=== PATIENT | female | born 1985 | race American Indian/Alaskan Native ===

== ENCOUNTER 2019-01-03 07:30 | Inpatient (IN) | payer MEDICARE ==
[~2019-01-03 07:30] MED LIST: CLEOCIN 600 MG/50 mL 600 MG/50 ML BAG IV NR
[2019-01-03] MEDS ORDERED: LACTATED RINGERS 1,000 ML ONE (12:41)
[2019-01-03] MEDS ORDERED: CLEOCIN 600 MG/50 mL 600 MG/50 ML BAG IV ONE (12:42)
[2019-01-03] MEDS ORDERED: XYLOCAINE MPF 2% ONE (12:44)
[2019-01-03] MEDS ORDERED: QUELICIN ONE (12:44)
[2019-01-03] MEDS ORDERED: DIPRIVAN 10 MG/ML IV ONE (12:44)
[2019-01-03] MEDS: LACTATED RINGERS 1,000 ML IV SCH ×2 (12:45→21:54)
[2019-01-03] MEDS ORDERED: SUBLIMAZE ONE (12:46)
[2019-01-03] MEDS ORDERED: VERSED ONE (12:52)
[2019-01-03] MEDS ORDERED: PEPCID IV ONE (12:52)
[2019-01-03] MEDS ORDERED: TYLENOL ONE (12:52)
[2019-01-03] MEDS ORDERED: NEURONTIN ONE ×2 (12:52)
[2019-01-03] MEDS ORDERED: LACTATED RINGERS 1,000 ML IV SCH (13:00)
[2019-01-03] MEDS ORDERED: XYLOCAINE 1%/ EPI 1:100,000 INFILTRATI ONE ×4 (13:38→14:17)
[2019-01-03] MEDS ORDERED: NACL 0.9% IR ONE (14:12)
--- NOTE | 2019-01-03 14:15 | Anesthesia Day of Surgery ---
Anesthesia Day of Surgery - Day of Surgery Patient Examined: Yes Patient H&P Reviewed: Yes Patient is NPO: Yes Beta Blockers: No Cardiac Clearance: No Pulmonary Clearance: No Kranthi's Test: N/A
--- NOTE | 2019-01-03 14:17 | Anesthesia Consultation ---
Anesthesia Consult and Med Hx Date of service: 01/03/19 - Airway Anesthetic Teeth Evaluation: Good ROM Head & Neck: Adequate Mental/Hyoid Distance: Inadequate (TMD << 3) Mallampati Class: Class IV Intubation Access Assessment: Possibly Difficult (likely will benefit from video laryngoscopy to secure airway) - Pulmonary Exam CTA: Yes - Cardiac Exam Cardiac Exam: RRR - Pre-Operative Health Status ASA Pre-Surgery Classification: ASA3 Proposed Anesthetic Plan: General - Pulmonary Hx Smoking: No Hx Asthma: No Hx Sleep Apnea: No - Cardiovascular System Hx Hypertension: No - Central Nervous System Hx Psychiatric Problems: Yes (Anxiety, depression) - Gastrointestinal Hx Gastroesophageal Reflux Disease: Yes (on nexium) - Endocrine Hx Renal Disease: No Hx End Stage Renal Disease: No - Other Systems Hx Alcohol Use: Yes (SOCIALLY) Hx Substance Use: No Hx Cancer: No Hx Obesity: Yes - Additional Comments Anesthesia Medical History Comments: super morbid obesity - positioning concerns as a prone patient with low FRC
[2019-01-03] MEDS ORDERED: TORADOL IV PRN (14:20)
[2019-01-03] MEDS ORDERED: ZOFRAN IV PRN (14:20)
[2019-01-03] MEDS ORDERED: NARCAN 0.4 MG/1 ML IV PRN ×3 (14:20→18:45)
[2019-01-03] MEDS ORDERED: SUBLIMAZE IV PRN ×3 (14:20→19:00)
[2019-01-03] MEDS ORDERED: ZEMURON IV ONE (15:01)
[2019-01-03] MEDS ORDERED: ZOFRAN ONE (15:01)
--- NOTE | 2019-01-03 15:33 | Operative Report ---
Operative Report Operative Report: Plastic Surgery Operative Note Preoperative Diagnosis: Hidradenitis suppurativa of the perianal region Postoperative Diagnosi: Same Procedure: Excision of gluteal cleft hidradenitis, 20x3cm (90 sq cm)application of VAC dressing Anesthesia: General endotracheal Surgeon: Dr. Lois Silverman Training Associate: SHREYA Sheppard Specimens: None EBL: Minimal Indications: Patient is a 33-year-old -[place] female who has a long- standing history hidradenitis suppurativa of the hair-bearing regions of her body. She has undergone multiple prior procedures to excise the diseased skin with success. Currently she suffers from hidradenitis of the superior gluteal cleft. This has been managed at home with wound care, with no improvement. She will undergo excision, with the plan for future split-thickness skin grafting to close her wound. The benefits as well as the risk of the procedure were dis cussed with the patient including but not limited to: Bleeding, hematoma, infection, wound dehiscence, need for further surgeries. Patient understands and accepts these risks and desired to proceed with procedure. Informed consent was obtained. Procedure: After review of pertinent history and physical exam, the patient was brought to the operating room and placed supine on the OR table. After induction of adequate general endotracheal anesthesia, the patient was placed in the prone position and the buttocks was prepped with Betadine and draped in the usual sterile surgical fashion. To begin, a marking pen was used to outline the desired area of diseased skin for excision. Next, 1% lidocaine with epinephrine was infiltrated in the skin and subcutaneous region surrounding the proposed excision. Using a #10 blade, the hidradenitis was sharply excised, and electrocautery was used to remove the skin full-thickness, exposing subcutaneous fat. Also using electrocautery, hemostasis was achieved. We then began approximation of the caudad portion of the incision with 2-0 Monocryl suture for the subcutaneous and deep dermal layers. This portion of the incision was then sealed with Dermabond. This was followed by placement of VAC dressing as follows: Black foam was cut to size, and covered with adhesive. The dressing was then placed to machine suction, and noted to have no leaks at 125 mmHg continuous suction. Patient was then flipped back to the supine position and awakened from anesthesia. She was then transferred to the recovery room in stable condition. Patient tolerated the procedure well. There were no complications. All sponge needle and instrument counts were correct at the end of the case.
[2019-01-03] MEDS ORDERED: NORCO 7.5/325 PO PRN (15:34)
[2019-01-03] MEDS ORDERED: MORPHINE PCA 30MG/30ML IV SCH (16:30)
[2019-01-03] MEDS ORDERED: NACL 0.9% 1000 ML 1,000 ML IV SCH ×3 (17:00→19:00)
[2019-01-03] MEDS: FENTANYL PCA IV SCH (21:49)
[2019-01-04] MEDS: IBUPROFEN PO PRN (01:20)
[2019-01-04] MEDS: PERCOCET 5/325 PO PRN ×2 (07:41→13:11)
[2019-01-04] MEDS: SENOKOT S PO SCH (09:59)
[2019-01-04] MEDS ORDERED: DILAUDID IV ONE (14:40)
[2019-01-04] MEDS ORDERED: DILAUDID IV STA (14:41)
--- NOTE | 2019-01-04 14:57 | Progress Note ---
Subjective Date of service: 01/04/19 Interval history: Plastic Surgery Progress Note Patient is doing well, POD #1 s/p excision of gluteal cleft hidradenitis with VAC placement. She is having issues with getting adequate pain control, denies nausea or vomiting. She is OOB to the bathroom. No issues with the VAC ove rnight. AFVSS NAD; AAOx3 VAC dressing in place, no leaks, serosanguinous output. Plan: We will switch her meds to IV Dilaudid, which she states she has taken in the past without issue and add IV Toradol for today to get pain under control, switch over to Ibuprofen and Percocet likely late tomorrow or Monday. Consult Wound Care nursing re: Dressing change Monday and Q 72H as well as setting up home VAC services, patient education on how to manage the dressing herself. Home meds ordered. OOB to bathroom, SCD's in bed. Objective - Constitutional Vitals: Vital Signs - 12hr 01/04/19 01/04/19 01/04/19 04:00 07:06 07:41 Temperature 98.4 F Pulse Rate 74 Respiratory 18 20 18 Rate Blood Pressure Blood Pressure 118/73 [Left] O2 Sat by Pulse Oximetry 01/04/19 01/04/19 01/04/19 08:50 12:24 13:11 Temperature 98.1 F 98.5 F Pulse Rate 64 88 Respiratory 16 20 20 Rate Blood Pressure 118/73 Blood Pressure 105/55 [Left] O2 Sat by Pulse 94 98 Oximetry Medications & Allergies - Medications Allergies/Adverse Reactions: Allergies hydrocodone Allergy (Verified 01/01/19 15:21) Rash morphine Allergy (Verified 01/01/19 15:21) Vomiting Penicillins Allergy (Verified 01/01/19 15:21) Rash Sulfa (Sulfonamide Antibiotics) Allergy (Verified 01/01/19 15:21) Rash vancomycin Allergy (Verified 01/01/19 15:21) Rash levofloxacin [From Levaquin] Adverse Reaction (Verified 01/03/19 12:56) Rash Home Medications: Home Medications Medication Instructions Recorded Confirmed Last Taken Type Ascorbic Acid [Vitamin C] 500 mg PO BID 02/16/18 01/03/19 01/02/19 08:00 History Carisoprodol [Soma] 350 mg PO DAILY 02/16/18 01/03/1901/02/19 22:00 History Cyanocobalamin (Vitamin B-12) 1,000 mcg PO DAILY 02/16/18 01/03/19 01/02/19 08:00 History [Vitamin B-12] Esomeprazole Magnesium 40 mg PO DAILY 02/16/18 01/03/19 01/02/19 23:30 History Promethazine [Phenergan] 25 mg PO DAILY 02/16/18 01/03/19 01/03/19 07:00 History buPROPion SR [Wellbutrin Sr] 150 mg PO QAM 02/16/18 01/03/19 01/02/19 22:00 History Amitriptyline [Elavil] 50 mg PO QHS 01/01/19 01/03/19 01/02/19 23:30 History Oxycodone HCl [oxyCODONE] 10 mg PO Q6H PRN 01/01/19 01/03/19 01/02/19 23:30 History PARoxetine HCl [Paroxetine] 30 mg PO DAILY 01/01/19 01/03/19 01/02/19 23:30 History Eligen B12 Tablet 1,000 mg PO DAILY 01/03/19 01/03/19 01/02/19 08:30 History Glucosamine HCl 50 mg PO DAILY 01/03/19 01/03/19 01/02/19 08:00 History Active Medications: Generic Name Dose Route Start Last Admin Trade Name Freq PRN Reason Stop Dose Admin Ascorbic Acid 500 mg 01/04/19 15:00 Vitamin C PO BID [facility] Bupropion HCl 150 mg 01/04/19 15:00 Wellbutrin Sr PO QDAY STEPHANIE Carisoprodol 350 mg 01/04/19 22:00 Soma PO DAILY STEPHANIE Cyanocobalamin 1,000 mcg 01/04/19 15:00 Vitamin B-12 PO QDAY STEPHANIE Diphenhydramine HCl 25 mg 01/03/19 15:34 Benadryl PO Q6H PRN Itching Famotidine 20 mg 01/04/19 15:00 Pepcid PO BID STEPHANIE Fentanyl 50 mcg 01/03/19 19:00 Sublimaze IV Q30MIN PRN Pain , Severe (7-10) Fentanyl 0 mcg 01/03/19 20:00 01/03/19 21:49 Fentanyl Equipment Detailer 300mcg/30ml IV 1 cartstart DIRECT STEPHANIE Administration Protocol Hydromorphone HCl 0.5 mg 01/04/19 14:41 Dilaudid IV Q2H PRN Pain , Severe (7-10) Hydromorphone HCl 2 mg 01/04/19 14:41 Dilaudid IV 01/04/19 14:42 ONCE STA Clindamycin HCl 600 mg in 50 mls @ 100 mls/hr 01/03/19 07:30 Cleocin 600 Mg/50 Ml IV INTRAOP STEPHANIE Protocol Lactated Ringer's 1,000 mls @ 75 mls/hr 01/03/19 13:00 01/03/19 21:54 Lactated Ringers IV 75 mls/hr DIRECT STEPHANIE Administration Sodium Chloride 1,000 mls @ 42 mls/hr 01/03/19 17:00 01/04/19 13:02 Nacl 0.9% 1000 Ml IV 42 mls/hr DIRECT STEPHANIE Administration Sodium Chloride 1,000 mls @ 42 mls/hr 01/03/19 17:00 Nacl 0.9% 1000 Ml IV DIRECT STEPHANIE Sodium Chloride 1,000 mls @ 42 mls/hr 01/03/19 19:00 Nacl 0.9% 1000 Ml IV DIRECT STEPHANIE Lactated Ringer's 1,000 mls @ 150 mls/hr 01/04/19 15:00 Lactated Ringers IV DIRECT STEPHANIE Ibuprofen 800 mg 01/03/19 15:34 01/04/19 01:20 Ibuprofen PO 800 mg Q8H PRN Administration Pain, Mild (1-3) Naloxone HCl 0.1 mg 01/03/19 18:45 Narcan 0.4 Mg/1 Ml IV Q2MIN PRN Res Rate </= 8 or 02 SAT < 92% Ondansetron HCl 4 mg 01/03/19 15:34 Zofran IV Q8H PRN Nausea And Vomiting Oxycodone/Acetaminophen 2 tab 01/04/19 06:55 01/04/19 13:11 Percocet 5/325 PO 2 tab Q4H PRN Administration Pain, Moderate (4-6) Pantoprazole Sodium 40 mg 01/04/19 15:00 Protonix PO QDAY STEPHANIE Paroxetine HCl 30 mg 01/04/19 15:00 Paxil PO QDAY STEPHANIE Senna/Docusate Sodium 1 tab 01/04/19 10:00 01/04/19 09:59 Senokot S PO 1 tab BID STEPHANIE Administration
[2019-01-04] MEDS ORDERED: TORADOL IM ONE (14:58)
[2019-01-04] MEDS: PROTONIX PO SCH (15:20)
[2019-01-04] MEDS: PEPCID PO SCH (15:20)
[2019-01-04] MEDS: PAXIL PO SCH (17:09)
[2019-01-04] MEDS: VITAMIN C PO SCH (17:09)
[2019-01-04] MEDS: WELLBUTRIN SR PO SCH (17:27)
[2019-01-04] MEDS: VITAMIN B-12 PO SCH (17:28)
[2019-01-04] MEDS: LACTATED RINGERS 1,000 ML IV SCH (17:30)
[2019-01-04] MEDS: TORADOL IV PRN (22:53)
[2019-01-05] MEDS: FENTANYL PCA IV SCH (06:40)
[2019-01-05] MEDS: DILAUDID IV PRN ×2 (08:03→17:31)
[2019-01-05] MEDS: CLEOCIN 600 MG/50 mL 600 MG/50 ML BAG IV SCH ×3 (08:04→09:37)
[2019-01-05] MEDS: VITAMIN C PO SCH (09:27)
[2019-01-05] MEDS: VITAMIN B-12 PO SCH (09:28)
[2019-01-05] MEDS: PROTONIX PO SCH (09:28)
[2019-01-05] MEDS: SENOKOT S PO SCH (09:28)
[2019-01-05] MEDS: WELLBUTRIN SR PO SCH (09:28)
[2019-01-05] MEDS: PEPCID PO SCH (09:28)
[2019-01-05] MEDS: PAXIL PO SCH (09:28)
[2019-01-05] MEDS: SOMA PO SCH (11:40)
[2019-01-05] MEDS: LACTATED RINGERS 1,000 ML IV SCH ×2 (11:40→17:32)
[2019-01-05] MEDS: ZOFRAN IV PRN (20:12)
[2019-01-05] MEDS: TORADOL IV PRN (20:20)
[2019-01-06] MEDS: SENOKOT S PO SCH ×3 (00:48→21:25)
[2019-01-06] MEDS: PEPCID PO SCH ×3 (00:48→21:25)
[2019-01-06] MEDS: PERCOCET 5/325 PO PRN (00:48)
[2019-01-06] MEDS: LACTATED RINGERS 1,000 ML IV SCH ×2 (00:56→15:47)
[2019-01-06] MEDS: VITAMIN C PO SCH ×2 (00:56→09:19)
[2019-01-06] MEDS: TORADOL IV PRN ×2 (05:40→15:47)
[2019-01-06] MEDS: FENTANYL PCA IV SCH (06:54)
[2019-01-06] MEDS: WELLBUTRIN SR PO SCH (09:18)
[2019-01-06] MEDS: VITAMIN B-12 PO SCH (09:18)
[2019-01-06] MEDS: PAXIL PO SCH (09:18)
[2019-01-06] MEDS: CLEOCIN 600 MG/50 mL 600 MG/50 ML BAG IV SCH (09:19)
[2019-01-06] MEDS: PROTONIX PO SCH (09:19)
[2019-01-06] MEDS: DILAUDID IV PRN ×3 (09:27→21:23)
[2019-01-06] MEDS: SOMA PO SCH (11:28)
[2019-01-07] MEDS: TORADOL IV PRN ×3 (00:30→18:19)
[2019-01-07] MEDS: VITAMIN C PO SCH ×3 (00:30→21:23)
[2019-01-07] MEDS: DILAUDID IV PRN ×5 (01:43→23:24)
[2019-01-07] MEDS: PERCOCET 5/325 PO PRN ×3 (03:55→14:14)
[2019-01-07] MEDS: PAXIL PO SCH ×2 (10:09→10:14)
[2019-01-07] MEDS: SENOKOT S PO SCH ×2 (10:09→21:23)
[2019-01-07] MEDS: PROTONIX PO SCH (10:09)
[2019-01-07] MEDS: PEPCID PO SCH ×2 (14:19→14:33)
--- NOTE | 2019-01-07 15:29 | Progress Note ---
Subjective Date of service: 01/07/19 Interval history: Patient reports that she is comfortable after dressing change, in bed. States that Percocet is making her itch. She has been OOB to restroom. AFVSS VAC dressing in place to continuous suction, 125mmHg Serosanguinous drainage Plan: Continue VAC, change Q2 Days. Wound care consult ongoing, set up for home VAC. Will alter her pain management regimen to the following: Dilaudid 2mg IV premedication for dressing changes Discontinue Percocet--> change to Oxycodone 10mg Q4h prn pain. Toradol 30mg IV Q8h prn moderate pain Dilaudid 0.5mg IV Q2h prn moderate-severe pain Objective - Constitutional Vitals: Vital Signs - 12hr 01/07/19 01/07/19 01/07/19 05:15 08:25 11:42 Temperature 97.7 F 97.6 F 97.5 F L Pulse Rate 80 72 83 Respiratory 18 18 18 Rate Blood Pressure 125/71 122/77 Blood Pressure 136/75 [Left] O2 Sat by Pulse 94 91 93 Oximetry Medications & Allergies - Medications Allergies/Adverse Reactions: Allergies hydrocodone Allergy (Verified 01/01/19 15:21) Rash morphine Allergy (Verified 01/01/19 15:21) Vomiting Penicillins Allergy (Verified 01/01/19 15:21) Rash Sulfa (Sulfonamide Antibiotics) Allergy (Verified 01/01/19 15:21) Rash vancomycin Allergy (Verified 01/01/19 15:21) Rash levofloxacin [From Levaquin] Adverse Reaction (Verified 01/03/19 12:56) Rash Home Medications: Home Medications Medication Instructions Recorded Confirmed Last Taken Type Ascorbic Acid [Vitamin C] 500 mg PO BID 02/16/18 01/03/19 01/02/19 08:00 History Carisoprodol [Soma] 350 mg PO DAILY 02/16/18 01/03/19 01/02/19 22:00 History Cyanocobalamin (Vitamin B-12) 1,000 mcg PO DAILY 02/16/18 01/03/19 01/02/19 08:00 History [Vitamin B-12] Esomeprazole Magnesium 40 mg PO DAILY 02/16/18 01/03/19 01/02/19 23:30 History Promethazine [Phenergan] 25 mg PO DAILY 02/16/18 01/03/19 01/03/19 07:00 History buPROPion SR [Wellbutrin Sr] 150 mg PO QAM 02/16/18 01/03/19 01/02/19 22:00 History Amitriptyline [Elavil] 50 mg PO QHS 01/01/19 01/03/19 01/02/19 23:30 History Oxycodone HCl [oxyCODONE] 10 mg PO Q6H PRN 01/01/19 01/03/19 01/02/19 23:30 History PARoxetine HCl [Paroxetine] 30 mg PO DAILY 01/01/19 01/03/19 01/02/19 23:30 History Eligen B12 Tablet 1,000 mg PO DAILY 01/03/19 01/03/19 01/02/19 08:30 History Glucosamine HCl 50 mg PO DAILY 01/03/19 01/03/19 01/02/19 08:00 History Active Medications: Generic Name Dose Route Start Last Admin Trade Name Larry PRN Reason Stop Dose Admin Ascorbic Acid 500 mg 01/04/19 15:00 01/07/19 10:09 Vitamin C PO 500 mg BID STEPHANIE Administration Bupropion HCl 150 mg 01/04/19 15:00 01/06/19 09:18 Wellbutrin Sr PO 150 mg QDAY STEPHANIE Administration Carisoprodol 350 mg 01/04/19 22:00 01/06/19 11:28 Soma PO 350 mg DAILY STEPHANIE Administration Cyanocobalamin 1,000 mcg 01/04/19 15:00 01/06/19 09:18 Vitamin B-12 PO 1,000 mcg QDAY STEPHANIE Administration Diphenhydramine HCl 25 mg 01/03/19 15:34 Benadryl PO Q6H PRN Itching Famotidine 20 mg 01/04/19 15:00 01/07/19 14:33 Pepcid PO 20 mg BID STEPHANIE Administration Fentanyl 50 mcg 01/03/19 19:00 Sublimaze IV Q30MIN PRN Pain , Severe (7-10) Hydromorphone HCl 0.5 mg 01/04/19 14:41 01/07/19 14:27 Dilaudid IV 0.5 mg Q2H PRN Administration Pain , Severe (7-10) Hydromorphone HCl 1 mg 01/07/19 12:00 01/07/19 12:10 Dilaudid IV 1 mg Q2H PRN Administration Pain , Severe (7-10) Clindamycin HCl 600 mg in 50 mls @ 100 mls/hr 01/03/19 07:30 01/06/19 09:19 Cleocin 600 Mg/50 Ml IV Not Given INTRAOP STEPHANIE Protocol Lactated Ringer's 1,000 mls @ 75 mls/hr 01/03/19 13:00 01/06/19 15:47 Lactated Ringers IV 75 mls/hr DIRECT STEPHANIE Administration Sodium Chloride 1,000 mls @ 42 mls/hr 01/03/19 17:00 01/04/19 13:02 Nacl 0.9% 1000 Ml IV 42 mls/hr DIRECT STEPHANIE Administration Sodium Chloride 1,000 mls @ 42 mls/hr 01/03/19 17:00 Nacl 0.9% 1000 Ml IV DIRECT STEPHANIE Sodium Chloride 1,000 mls @ 42 mls/hr 01/03/19 19:00 Nacl 0.9% 1000 Ml IV DIRECT STEPHANIE Lactated Ringer's 1,000 mls @ 150 mls/hr 01/04/19 15:00 01/06/19 00:56 Lactated Ringers IV 150 mls/hr DIRECT STEPHANIE Administration Ibuprofen 800 mg 01/03/19 15:34 01/04/19 01:20 Ibuprofen PO 800 mg Q8H PRN Administration Pain, Mild (1-3) Ketorolac Tromethamine 30 mg 01/04/19 14:59 01/07/19 11:50 Toradol IV 01/09/19 14:58 30 mg Q8H PRN Administration Pain, Moderate (4-6) Naloxone HCl 0.1 mg 01/03/19 18:45 Narcan 0.4 Mg/1 Ml IV Q2MIN PRN Res Rate </= 8 or 02 SAT < 92% Ondansetron HCl 4 mg 01/03/19 15:34 01/05/19 20:12 Zofran IV 4 mg Q8H PRN Administration Nausea And Vomiting Oxycodone/Acetaminophen 2 tab 01/04/19 06:55 01/07/19 14:14 Percocet 5/325 PO 2 tab Q4H PRN Administration Pain, Moderate (4-6) Pantoprazole Sodium 40 mg 01/04/19 15:00 01/07/19 10:09 Protonix PO 40 mg QDAY STEPHANIE Administration Paroxetine HCl 30 mg 01/04/19 15:00 01/07/19 10:14 Paxil PO 30 mg QDAY STEPHANIE Administration Senna/Docusate Sodium 1 tab 01/04/19 10:00 01/07/19 10:09 Senokot S PO 1 tab BID STEPHANIE Administration
[2019-01-07] MEDS: WELLBUTRIN SR PO SCH (15:47)
[2019-01-07] MEDS: VITAMIN B-12 PO SCH (15:47)
[2019-01-07] MEDS: ZOFRAN IV PRN (15:57)
[2019-01-07] MEDS: SOMA PO SCH (16:49)
[2019-01-07] MEDS: ROXICODONE PO PRN (21:23)
[2019-01-08] MEDS: TORADOL IV PRN ×2 (02:29→12:46)
[2019-01-08] MEDS: ROXICODONE PO PRN ×2 (05:27→17:35)
[2019-01-08] MEDS: ZOFRAN IV PRN ×2 (05:38→17:36)
[2019-01-08] MEDS: PAXIL PO SCH (09:37)
[2019-01-08] MEDS: VITAMIN B-12 PO SCH (09:38)
[2019-01-08] MEDS: DILAUDID IV PRN ×2 (09:38→21:42)
[2019-01-08] MEDS: PROTONIX PO SCH (09:38)
[2019-01-08] MEDS: VITAMIN C PO SCH ×2 (09:40→21:42)
[2019-01-08] MEDS: SOMA PO SCH (12:45)
[2019-01-08] MEDS: WELLBUTRIN SR PO SCH (12:45)
[2019-01-08] MEDS: SENOKOT S PO SCH ×2 (12:45→21:57)
[2019-01-08] MEDS: BENADRYL PO PRN (21:41)
[2019-01-09] MEDS: TORADOL IV PRN ×2 (01:56→09:24)
[2019-01-09] MEDS: ROXICODONE PO PRN ×4 (01:56→21:12)
[2019-01-09] MEDS: ZOFRAN IV PRN ×2 (06:37→21:14)
--- NOTE | 2019-01-09 07:53 | Progress Note ---
Subjective Date of service: 01/09/19 Interval history: Plastic Surgery Progress Note Patient is doing well, no complaints. Her pain is well controlled. She has been OOB to the restroom but notes that whenever she does get up and even when she lays in certain positions the VAC dressing develops a leak in the seal. Ot herwise no issues. AFVSS VAC dressing intact with good seal at contiuous suction, 125mmHg at rest but when patient turns to the lateral decubitus position, seal leak is evident at the caudal aspect of the dressing. The adhesive is lifted at the bottom and has an odor as if it has fecal matter in it. However when the patient goes back to supine, the leak dissipates. No erythema, appropriately tender, no signs of infection. Plan: Wound care nursing to perform bedside dressing change today. Patient needs to be assisted in bathing prior to the reapplication of VAC dressing. She is to be pre-medicated with Dilaudid 2mg IV. Patient reported that the wound wash that was used to remove the foam caused much more discomfort that normal saline, which she has used in the past with her VAC dressing changes without issue. Paperwork for home VAC completed and returned to social work via fax. Will write contingent discharge order for d/c once home VAC and wound care is set up. Pain medication: Prescriptions on the chart. Plan for wound closure/STSG in approx. 2 weeks. Objective - Constitutional Vitals: Vital Signs - 12hr 01/08/19 01/08/19 01/09/19 21:41 23:31 04:07 Temperature 98.5 F 97.8 F Pulse Rate 96 H 89 Respiratory 20 20 18 Rate Blood Pressure 153/83 122/60 O2 Sat by Pulse 92 93 Oximetry Medications & Allergies - Medications Allergies/Adverse Reactions: Allergies hydrocodone Allergy (Verified 01/01/19 15:21) Rash morphine Allergy (Verified 01/01/19 15:21) Vomiting Penicillins Allergy (Verified 01/01/19 15:21) Rash Sulfa (Sulfonamide Antibiotics) Allergy (Verified 01/01/19 15:21) Rash vancomycin Allergy (Verified 01/01/19 15:21) Rash levofloxacin [From Levaquin] Adverse Reaction (Verified 01/03/19 12:56) Rash Home Medications: Home Medications Medication Instructions Recorded Confirmed Last Taken Type Ascorbic Acid [Vitamin C] 500 mg PO BID 02/16/18 01/03/19 01/02/19 08:00 History Carisoprodol [Soma] 350 mg PO DAILY 02/16/18 01/03/19 01/02/19 22:00 History Cyanocobalamin (Vitamin B-12) 1,000 mcg PO DAILY 02/16/18 01/03/19 01/02/19 08:00 History [Vitamin B-12] Esomeprazole Magnesium 40 mg PO DAILY 02/16/18 01/03/19 01/02/19 23:30 History Promethazine [Phenergan] 25 mg PO DAILY 02/16/18 01/03/19 01/03/19 07:00 History buPROPion SR [Wellbutrin Sr] 150 mg PO QAM 02/16/18 01/03/19 01/02/19 22:00 History Amitriptyline [Elavil] 50 mg PO QHS 01/01/19 01/03/19 01/02/19 23:30 History Oxycodone HCl [oxyCODONE] 10 mg PO Q6H PRN 01/01/19 01/03/19 01/02/19 23:30 History PARoxetine HCl [Paroxetine] 30 mg PO DAILY 01/01/19 01/03/19 01/02/19 23:30 History Eligen B12 Tablet 1,000 mg PO DAILY 01/03/19 01/03/19 01/02/19 08:30 History Glucosamine HCl 50 mg PO DAILY 01/03/19 01/03/19 01/02/19 08:00 History Active Medications: Generic Name Dose Route Start Last Admin Trade Name [facility] PRN Reason Stop Dose Admin Ascorbic Acid 500 mg 01/04/19 15:00 01/08/19 21:42 Vitamin C PO 500 mg BID STEPHANIE Administration Bupropion HCl 150 mg 01/04/19 15:00 01/08/19 12:45 Wellbutrin Sr PO 150 mg QDAY STEPHANIE Administration Carisoprodol 350 mg 01/04/19 22:00 01/08/19 12:45 Soma PO 350 mg DAILY STEPHANIE Administration Cyanocobalamin 1,000 mcg 01/04/19 15:00 01/08/19 09:38 Vitamin B-12 PO 1,000 mcg QDAY STEPHANIE Administration Diphenhydramine HCl 25 mg 01/03/19 15:34 01/08/19 21:41 Benadryl PO 25 mg Q6H PRN Administration Itching Hydromorphone HCl 1 mg 01/07/19 12:00 01/08/19 21:42 Dilaudid IV 1 mg Q2H PRN Administration Pain , Severe (7-10) Hydromorphone HCl 2 mg 01/07/19 15:29 Dilaudid IV Q3H PRN Pain , Severe (7-10) Lactated Ringer's 1,000 mls @ 150 mls/hr 01/04/19 15:00 01/06/19 00:56 Lactated Ringers IV 150 mls/hr DIRECT STEPHANIE Administration Ibuprofen 800 mg 01/03/19 15:34 01/04/19 01:20 Ibuprofen PO 800 mg Q8H PRN Administration Pain, Mild (1-3) Ketorolac Tromethamine 30 mg 01/04/19 14:59 01/09/19 01:56 Toradol IV 01/09/19 14:58 30 mg Q8H PRN Administration Pain, Moderate (4-6) Naloxone HCl 0.1 mg 01/03/19 18:45 Narcan 0.4 Mg/1 Ml IV Q2MIN PRN Res Rate </= 8 or 02 SAT < 92% Ondansetron HCl 4 mg 01/03/19 15:34 01/09/19 06:37 Zofran IV 4 mg Q8H PRN Administration Nausea And Vomiting Oxycodone HCl 10 mg 01/07/19 15:33 01/09/19 06:06 Roxicodone PO 10 mg Q4H PRN Administration Pain, Moderate (4-6) Pantoprazole Sodium 40 mg 01/04/19 15:00 01/08/19 09:38 Protonix PO 40 mg QDAY STEPHANIE Administration Paroxetine HCl 30 mg 01/04/19 15:00 01/08/19 09:37 Paxil PO 30 mg QDAY STEPHANIE Administration Senna/Docusate Sodium 1 tab 01/04/19 10:00 01/08/19 21:57 Senokot S PO Not Given BID STEPHANIE
[2019-01-09] MEDS: VITAMIN B-12 PO SCH (09:24)
[2019-01-09] MEDS: WELLBUTRIN SR PO SCH (09:25)
[2019-01-09] MEDS: SENOKOT S PO SCH (09:25)
[2019-01-09] MEDS: VITAMIN C PO SCH ×2 (09:25→21:38)
[2019-01-09] MEDS: PAXIL PO SCH (09:25)
[2019-01-09] MEDS: PROTONIX PO SCH (09:25)
[2019-01-09] MEDS: SOMA PO SCH (10:19)
[2019-01-09] MEDS: ZINC SULFATE PO SCH ×2 (15:45→21:38)
[2019-01-09] MEDS: BENADRYL PO PRN (21:13)
[2019-01-09] MEDS: IBUPROFEN PO PRN (21:13)
[2019-01-09] MEDS: DILAUDID IV PRN (21:35)
[2019-01-10] MEDS: ROXICODONE PO PRN ×2 (03:02→11:48)
[2019-01-10] MEDS: DILAUDID IV PRN ×3 (03:04→13:45)
[2019-01-10] MEDS: ZOFRAN IV PRN (10:27)
[2019-01-10] MEDS: SOMA PO SCH (10:28)
[2019-01-10] MEDS: ZINC SULFATE PO SCH (10:37)
[2019-01-10] MEDS: WELLBUTRIN SR PO SCH (10:38)
[2019-01-10] MEDS: VITAMIN B-12 PO SCH (10:38)
[2019-01-10] MEDS: VITAMIN C PO SCH (10:38)
[2019-01-10] MEDS: PAXIL PO SCH (10:40)
[2019-01-10] MEDS: PROTONIX PO SCH (10:41)
[2019-01-10] MEDS: SENOKOT S PO SCH (10:42)
[2019-01-10] MEDS ORDERED: AFLURIA QUAD 2018-2019 SYRINGE IM ONE (12:00)
[2019-01-10 14:14] VITALS: BP 139/63
--- NOTE | 2019-01-15 08:12 | Discharge Summary ---
Providers - Providers Date of Admission: 01/03/19 11:27 Date of discharge: 12/10/18 Attending physician: ROBY HOYOS MD 01/04/19 14:57 Consult to Wound/ET Nurse [CONS] Urgent Reason For Exam: wound eval and care, Home VAC 01/07/19 19:35 Consult to Case Management [CONS] Routine Services Needed at Discharge: Ring Sewer Notified:: none Additional Physician Instructions: home care for wound vacc Primary care physician: FRANCHESCA DENNISON Hospitalization Condition: Good Pertinent studies: None Procedures: Excision of gluteal cleft hidradenitis with appliation of VAC dressing. Hospital course: Patient admitted to the floor post operatively with her VAC dressing in place. Wound care consult called to evaluate wound and perform dressing changes as well as set her up for a home VAC. Disposition: DC/- HOME UNDER HOME HLTH - Discharge Diagnoses (1) Hidradenitis suppurativa of anus Status: Chronic (2) Open wound Status: Acute Core Measure Documentation - Palliative Care Palliative Care/ Comfort Measures: Not Applicable - Core Measures Any of the following diagnoses?: none - VTE Discharge Requirements Deep Vein Thrombosis/Pulmonary Embolism Present on Admission: No Has pt received <5 days of overlap therapy or INR<2.0: No Anticoagulant overlap therapy prescribed at discharge: No Contraindication No Overlap Therapy order at DC: Not Indicated - Acute [place] Discharge Requirements Aspirin at discharge: No Reason for no aspirin on DC: Surgical contraindication (Open wound that bleeds when changed) ARIANE/ARB for LVSD if EF <40%: Not Applicable Reason for no ARIANE/ARB: Medical contraindication Beta skyler at discharge: No Reason for no beta skyler on DC: Medical contraindication Statin for LDL = or >100 mg/dl on DC: Not Applicable Reason for no statin on DC: Medical contraindication - Heart Failure Discharge Requirements ARIANE/ARB for LVSD if EF <40%: Not Applicable Reason for no ARIANE/ARB: Medical contraindication Beta skyler at discharge: No Reason for no beta skyler on DC: Medical contraindication - Stroke Discharge Requirements Statin for LDL = or >70 mg/dl on DC: Not Applicable Reason for no statin on DC: Not Indicated Anticoag for atrial fib/atrial flutter: Not Applicable Reason for no anticoag for AF/F on DC: Not Indicated Antithrombotic for ischemic stroke: No Reason for no antithrombotic on DC: Not Indicated Exam - Constitutional Vitals: Temp Pulse Resp BP Pulse Ox 98.1 F 79 18 139/63 95 01/10/19 14:11 01/10/19 14:11 01/10/19 14:11 01/10/19 14:11 01/10/19 14:11 General appearance: Present: no acute distress, obese - EENT Eyes: Present: PERRL, EOM intact ENT: hearing intact, clear oral mucosa, dentition normal - Neck Neck: Present: supple, normal ROM - Respiratory Respiratory effort: normal Respiratory: bilateral: CTA - Cardiovascular Rhythm: regular Heart Sounds: Present: S1 & S2 - Extremities Extremities: no ischemia, Full ROM Peripheral Pulses: within normal limits - Abdominal General gastrointestinal: Present: soft, non-tender, distended Female genitourinary: Present: deferred - Rectal Rectal Exam: deferred - Integumentary Integumentary: Present: clear (Except for supra-gluteal region, which has an open wound with VAC in place.) - Musculoskeletal Musculoskeletal: strength equal bilaterally - Psychiatric Psychiatric: appropriate mood/affect - Neurologic Neurologic: CNII-XII intact - Allied Health Allied health notes reviewed: nursing (care home care ordered for management of VAC dressing at home. They will perform the dressing changes 3 times a week.), case management Plan Activity: no restrictions Weight Bearing Status: Weight Bear as Tolerated Diet: regular Wound: change dressing, per your surgeon's advice Special Instructions: home health RN Follow up with: ROBY HOYOS MD [Staff Physician] - 7 Days Pending Studies Follow up in two weeks for wound evaluation.
== END 2019-01-10 14:30 | disposition home health service (06) | DRG 571 ==
LOC: 3A 11:27 → OB 15:35
PROVIDERS: ADMIT Plastic Surgery; ATTEND Plastic Surgery
PROC: 0JBB0ZZ Excision of Perineum Subcutaneous Tissue and Fascia, Open Approach (ICD-10-PCS; principal; 2019-01-03)
DX: L73.2 Hidradenitis suppurativa (principal); Z68.44 Body mass index [BMI] 60.0-69.9, adult; Z71.3 Dietary counseling and surveillance; F41.9 Anxiety disorder, unspecified; F32.9 Major depressive disorder, single episode, unspecified; E66.9 Obesity, unspecified; K21.9 Gastro-esophageal reflux disease without esophagitis; G43.909 Migraine, unspecified, not intractable, without status migrainosus; Z90.710 Acquired absence of both cervix and uterus
CPT/HCPCS: 90686; G0378; J0330; J1170; J1885; J2250; J2270; J2405; J2704; J3010; J7030; J7120

== ENCOUNTER 2019-02-27 06:32 | Observation (INO) | payer MEDICARE ==
--- NOTE | 2019-02-25 15:13 | Anesthesia Consultation ---
Anesthesia Consult and Med Hx Date of service: 02/25/19 - Airway Anesthetic Teeth Evaluation: Good ROM Head & Neck: Adequate Mental/Hyoid Distance: Adequate Mallampati Class: Class II Intubation Access Assessment: Good - Pulmonary Exam CTA: Yes - Cardiac Exam Cardiac Exam: RRR - Pre-Operative Health Status ASA Pre-Surgery Classification: ASA2 Proposed Anesthetic Plan: General - Pulmonary Hx Smoking: No - Cardiovascular System Hx Hypertension: No - Central Nervous System Hx Psychiatric Problems: Yes - Gastrointestinal Hx Gastroesophageal Reflux Disease: Yes (on nexium) - Other Systems Hx Alcohol Use: Yes (SOCIALLY) Hx Cancer: No Hx Obesity: Yes - Additional Comments Anesthesia Medical History Comments: 34 year old female for skin graft surgery under [place] has hx of obesity , GERD, anxiety ,depression and hidradenitis
[~2019-02-27 06:32] MED LIST changes: -CLEOCIN 600 MG/50 mL 600 MG/50 ML BAG IV NR; +GENTAMICIN IV SCH; +LACTATED RINGERS 1,000 ML IV SCH; +NEURONTIN PO NR; +PEPCID PO NR; +VANCOMYCIN/NS 1 GM/250 ML 1 GM/250 ML BAG IV NR; +VERSED IV NR
[2019-02-27] MEDS ORDERED: GENTAMICIN IV ONE (07:00)
[2019-02-27] MEDS ORDERED: NACL 0.9% IV ONE (07:00)
[2019-02-27] MEDS ORDERED: MINERAL OIL TOPICAL LIGHT TP ONE ×2 (07:03→08:20)
[2019-02-27] MEDS ORDERED: MARCAINE-EPI 0.25%-1:200,000 INFILTRATI ONE (07:03)
--- NOTE | 2019-02-27 07:08 | Anesthesia Day of Surgery ---
Anesthesia Day of Surgery - Day of Surgery Patient Examined: Yes Patient H&P Reviewed: Yes Patient is NPO: Yes
[2019-02-27] MEDS ORDERED: XYLOCAINE MPF 2% ONE (07:18)
[2019-02-27] MEDS ORDERED: DILAUDID ONE ×3 (07:18→13:53)
[2019-02-27] MEDS ORDERED: ZEMURON IV ONE (07:18)
[2019-02-27] MEDS ORDERED: DIPRIVAN 10 MG/ML IV ONE ×2 (07:18→08:36)
[2019-02-27] MEDS ORDERED: QUELICIN ONE (07:19)
[2019-02-27] MEDS ORDERED: PEPCID IV SCH (07:50)
[2019-02-27] MEDS ORDERED: CLEOCIN 600 MG/50 mL 600 MG/50 ML BAG IV NR (08:00)
[2019-02-27] MEDS ORDERED: NACL 0.9% IR ONE (08:20)
[2019-02-27] MEDS ORDERED: MARCAINE-EPI/PF 0.25%-1:200,000 INFILTRATI ONE (08:20)
[2019-02-27] MEDS ORDERED: PHENYLEPHRINE/NS Syringe 1,000 MCG/10 ML IV ONE (08:53)
[2019-02-27] MEDS ORDERED: BLOXIVERZ ONE (10:11)
[2019-02-27] MEDS ORDERED: ROBINUL ONE (10:11)
[2019-02-27] MEDS ORDERED: ZOFRAN ONE (10:12)
--- NOTE | 2019-02-27 10:47 | Operative Report ---
Operative Report Operative Report: Plastic Surgery Operative Note Preop Diagnosis: Hidradenitis suppurativa of the gluteal cleft; open wound of the gluteal cleft status post excision of hidradenitis. Postop Diagnosis: Same Procedure: Split thickness skin graft to gluteal cleft wound, 52.5 sq cm Surgeon: Lois Silverman MD Box Icer: none Anesthesia: General EBL: Minimal Specimen: none Indications: Patient is a 34 year old AAF who has a history of extensive hidradenitis suppurativa of the groin and gluteal cleft. She underwent a procedure to excise the affected skin several weeks ago and was healing at home with VAC therapy. The determination was made that her wound was now ready for skin grafting. The benefits and risks of the procedure were explained to the patient in great detail. She understands and accepts these risks and desired to move forward with surgery. Informed consent was obtained. Procedure: After review of pertinent history and physical exam findings, the patient was brought into the OR and intubated on the stretcher after which she was placed prone on the OR table. The gluteal cleft and right buttock was prepped with betadine and draped in the usual sterile surgical fashion. The patient had two wounds requiring grafting: Superiorly, a wound measuring 2.5 x 1 cm and inferiorly a larger wound extending towards the anus measuring 5 x 10 cm. To begin the proposed graft harvest area was infiltrated with 20cc of 0.25% Marcaine with epinephrine and time was allowed for epinephrine effect. Next, after application of mineral oil for slip, a Merlyn dermatome was used to harvest the split skin graft. The skin was then placed on a plate and meshed 1:1.5 and transferred directly to the wounds, where it contoured appropriately using an Metzenbaum scissors and secured using 3-0 Chromic suture. When both wounds were finished being grafted in this fashion, a VAC black granufoam sponge was contoured and applied over a layer of Adaptic. This was then covered with VAC tegaderm and suction apparatus was applied with excellent seal and no leaks detected. The skin graft donor site was dressed with Xeroform, dry gauze and Medpore dressing. Patient was then returned to the stretcher in supine position and extubated without difficulty. She was then transferred to the recovery room in stable condition. All sponge, needle and instrument counts were correct at the end of the case.
[2019-02-27] MEDS ORDERED: IBUPROFEN PO PRN (10:55)
[2019-02-27] MEDS ORDERED: BENADRYL PO PRN (10:59)
[2019-02-27] MEDS ORDERED: TYLENOL PO PRN (10:59)
[2019-02-27] MEDS ORDERED: DILAUDID IV PRN (11:30)
--- NOTE | 2019-02-27 13:45 | Post Anesthesia Evaluation ---
- Post Anesthesia Evaluation Patient Participated: Yes Airway Patent: Yes Stable Respiratory Function: Yes Nausea/Vomiting: No Temp > 96.8F: Yes Pain Manageable: Yes Adequeate Hydration: Yes Anesthesia Complications: No
[2019-02-27] MEDS: DILAUDID IV PRN ×3 (13:55→21:57)
[2019-02-27] MEDS: DILAUDID PO PRN (17:33)
[2019-02-27] MEDS: LACTATED RINGERS 1,000 ML IV SCH (19:49)
[2019-02-27] MEDS: ZOFRAN IV PRN (19:49)
[2019-02-28] MEDS: DILAUDID IV PRN ×3 (01:59→11:24)
[2019-02-28] MEDS: LACTATED RINGERS 1,000 ML IV SCH (03:12)
[2019-02-28] MEDS: ZOFRAN IV PRN (07:02)
--- NOTE | 2019-02-28 09:01 | Progress Note ---
Subjective Date of service: 02/28/19 Interval history: Plastic Surgery Progress Patient did well overnight, pain is controlled, she has no fever, no chills, and she is tolerating clear liquids. She has been out of bed to the restroom. Patient is ready to go home. Afebrile vital signs stable Left buttock skin graft donor site has light blood-tinged stain on dressing, reinforced with ABDs, no strikethrough. Split-thickness skin graft covered by a VAC dressing which is intact and shows no leaks. Minimal output in the canister. Assessment: Postop day 1 status post split-thickness skin graft to gluteal cleft wound. Plan: Patient will be discharged home today in the care of her mother. She has pain medicine prescriptions from pain management service and states that she does not need anymore. A prescription for Phenergan will be called into her pharmacy at her request. She's been instructed not to remove the VAC as the skin graft will be unveiled on Monday in the office. Pt has also been instructed to change the outer portion of the donor site dressing on her left buttock as needed for drainage and reinforced also as needed. Objective - Constitutional Vitals: Vital Signs - 12hr 02/27/19 02/27/19 02/28/19 21:57 22:27 00:45 Temperature 97.7 F Pulse Rate 74 Respiratory 18 18 18 Rate Blood Pressure Blood Pressure 110/80 [Right] O2 Sat by Pulse 97 Oximetry 02/28/19 02/28/19 02/28/19 01:59 02:29 06:33 Temperature 98.1 F Pulse Rate 75 Respiratory 18 18 16 Rate Blood Pressure 114/75 Blood Pressure [Right] O2 Sat by Pulse 98 Oximetry 02/28/19 02/28/19 07:02 07:31 Temperature 97.8 F Pulse Rate 86 Respiratory 18 16 Rate Blood Pressure Blood Pressure 91/64 [Right] O2 Sat by Pulse 98 Oximetry Medications & Allergies - Medications Allergies/Adverse Reactions: Allergies hydrocodone Allergy (Verified 02/22/19 11:30) Rash morphine Allergy (Verified 02/22/19 11:30) Vomiting Penicillins Allergy (Verified 02/22/19 11:30) Rash Sulfa (Sulfonamide Antibiotics) Allergy (Verified 02/22/19 11:30) Rash vancomycin Allergy (Verified 02/22/19 11:30) Rash levofloxacin [From Levaquin] Adverse Reaction (Verified 02/22/19 11:30) Rash Home Medications: Home Medications Medication Instructions Recorded Confirmed Last Taken Type Ascorbic Acid [Vitamin C] 500 mg PO BID 02/16/18 02/22/19 02/26/19 14:00 History Carisoprodol [Soma] 350 mg PO DAILY 02/16/18 02/22/19 02/26/19 14:00 History Cyanocobalamin (Vitamin B-12) 1,000 mcg PO DAILY 02/16/18 02/22/19 02/26/19 14:00 History [Vitamin B-12] Esomeprazole Magnesium 40 mg PO DAILY 02/16/18 02/22/19 02/26/19 14:00 History Promethazine [Phenergan] 25 mg PO Q8H PRN 02/16/18 02/22/19 02/26/19 14:00 History buPROPion SR [Wellbutrin SR] 150 mg PO QAM 02/16/18 02/22/19 02/26/19 14:00 History Amitriptyline [Elavil] 50 mg PO QHS 01/01/19 02/22/19 02/26/19 14:00 History Oxycodone HCl [oxyCODONE] 15 mg PO Q6H PRN 01/01/19 02/22/19 02/26/19 14:00 History PARoxetine HCl [Paroxetine] 30 mg PO DAILY 01/01/19 02/22/19 02/26/19 14:00 History Glucosamine HCl 50 mg PO DAILY 01/03/19 02/22/19 02/26/19 14:00 History Active Medications: Generic Name Dose Route Start Last Admin Trade Name Freq PRN Reason Stop Dose Admin Acetaminophen 650 mg 02/27/19 10:59 Tylenol PO Q6H PRN Fever >101 Diphenhydramine HCl 25 mg 02/27/19 10:59 Benadryl PO Q6H PRN Itching Hydromorphone HCl 2 mg 02/27/19 10:53 02/28/19 07:02 Dilaudid IV 2 mg Q4H PRN Administration Pain , Severe (7-10) Hydromorphone HCl 2 mg 02/27/19 10:58 Dilaudid PO Q4H PRN Pain , Severe (7-10) Lactated Ringer's 1,000 mls @ 125 mls/hr 02/27/19 12:00 02/28/19 03:12 Lactated Ringers IV 125 mls/hr DIRECT STEPHANIE Administration Ibuprofen 800 mg 02/27/19 10:55 Ibuprofen PO Q8H PRN Pain, Mild (1-3) Ondansetron HCl 4 mg 02/27/19 10:55 02/28/19 07:02 Zofran IV 4 mg Q8H PRN Administration Nausea And Vomiting
[2019-02-28] MEDS: DILAUDID PO PRN (15:43)
[2019-02-28 16:04] VITALS: BP 117/55
== END 2019-02-28 16:15 | disposition home or self-care (01) ==
LOC: INTOOBSV 06:32 → 3A 06:32 → OB 11:03
PROVIDERS: ADMIT Plastic Surgery; ATTEND Plastic Surgery
DX: L73.2 Hidradenitis suppurativa (principal)
CPT/HCPCS: 15120; 96374; 96375; 96376; G0378; G0379; J0330; J1170; J1580; J2370; J2405; J2704; J2710; J7120

== ENCOUNTER 2020-01-06 11:00 | Outpatient (CLI) | payer MEDICARE | END 2020-01-06 11:01 | disposition home or self-care (01) | LOC: SLR 11:00 | PROVIDERS: ATTEND Otolaryngology | DX: G47.33 Obstructive sleep apnea (adult) (pediatric) (principal); R40.0 Somnolence; E66.9 Obesity, unspecified | CPT/HCPCS: 95810 ==

== ENCOUNTER 2020-01-08 11:00 | Outpatient (CLI) | payer MEDICARE | END 2020-01-08 11:01 | disposition home or self-care (01) | LOC: SLR 11:00 | PROVIDERS: ATTEND Otolaryngology | DX: G47.33 Obstructive sleep apnea (adult) (pediatric) (principal); R40.0 Somnolence; E66.9 Obesity, unspecified | CPT/HCPCS: 95811 ==

== ENCOUNTER 2020-05-11 12:19 | Outpatient (CLI) | payer MEDICARE ==
[~2020-05-11 12:19] MED LIST changes: +DOPamine/D5W 800 MG/250 ML 800 MG/250 ML BAG IV ONE; -GENTAMICIN IV SCH; -LACTATED RINGERS 1,000 ML IV SCH; -NEURONTIN PO NR; -PEPCID PO NR; -VANCOMYCIN/NS 1 GM/250 ML 1 GM/250 ML BAG IV NR; -VERSED IV NR
--- NOTE | 2020-05-20 19:59 | Pulmonary Function Test ---
PULMONARY FUNCTION TEST SPIROMETRY: FVC 2.46 liters, which is 92% of the predicted. FEV1 is 2.02 liters, which is 90% of the predicted. FEV1/FVC ratio is 82. FLOW VOLUME LOOP: FEF 25%-75% 2.21 liters per second, which is 83% of the predicted. IMPRESSION: Normal pulmonary test. JOB# [id number] RSM/NTS
== END 2020-05-11 12:20 | disposition home or self-care (01) ==
LOC: PF 12:19
PROVIDERS: ATTEND Surgery
DX: E66.01 Morbid (severe) obesity due to excess calories (principal); R06.89 Other abnormalities of breathing
CPT/HCPCS: 94010; J1265

== ENCOUNTER 2020-06-24 09:39 | Outpatient (CLI) | payer MEDICARE ==
--- NOTE | 2020-06-24 13:47 | Fluoroscopy Report ---
Upper GI HISTORY: gastro esophogeal reflux w/o esophagitis. Preoperative evaluation Technique: Single and double contrast barium technique utilized to evaluate the esophagus, stomach, and duodenal C-loop. Findings: To begin the exam, swallowing was evaluated in the lateral position under direct fluorosco py. Swallowing was normal. No mucosal irregularity, mass, mass effect, or critical stenosis. There were no abnormal tertiary c ontractions as seen with dysmotility. There was moderate gastroesophageal reflux reaching the mid eso phagus. Impression: Moderate gastroesophageal reflux. Fluoroscopic time: 1.2 minutes Number of fluoroscopic images: 14 Signer Name: Rodriguez Caro MD Signed: 06/24/2020 1:46 PM Workstation Name: [id number]
== END 2020-06-24 09:40 | disposition home or self-care (01) ==
LOC: FLUORO 09:39
PROVIDERS: ATTEND Surgery
DX: K21.00 Gastro-esophageal reflux disease with esophagitis, without bleeding (principal)
CPT/HCPCS: 74246

== ENCOUNTER 2020-06-30 06:58 | Day surgery (SDC) | payer MEDICARE ==
[2020-06-30] MEDS ORDERED: SODIUM CHLORIDE 0.9% 1000 ML 1,000 ML IV SCH (07:00)
[2020-06-30] MEDS ORDERED: WATER FOR IRRIG STERILE 1,000 ML BOTTLE ONE (07:37)
[2020-06-30] MEDS ORDERED: WATER FOR IRRIG STERILE 250 ML BOTTLE IR ONE ×2 (07:37→07:38)
--- NOTE | 2020-06-30 07:47 | Anesthesia Consultation ---
Anesthesia Consult and Med Hx Date of service: 06/30/20 - Airway Anesthetic Teeth Evaluation: Good ROM Head & Neck: Adequate Mental/Hyoid Distance: Adequate Mallampati Class: Class III Intubation Access Assessment: Possibly Difficult - Pre-Operative Health Status ASA Pre-Surgery Classification: ASA3 Proposed Anesthetic Plan: MAC - Pulmonary Hx Smoking: No Hx Asthma: No Hx Respiratory Symptoms: No SOB: No COPD: No Home Oxygen Therapy: No Hx Pneumonia: No Hx Sleep Apnea: Yes - Cardiovascular System Hx Hypertension: No Hx Coronary Artery Disease: No Hx Heart Attack/AMI: No Hx Angina: No Hx Percutaneous Transluminal Coronary Angioplasty (PTCA): No Hx Cardia Arrhythmia: No Hx Pacemaker: No Hx Internal Defibrillator: No Hx Valvular Heart Disease: No Hx Heart Murmur: No Hx Peripheral Vascular Disease: No - Central Nervous System Hx Neuromuscular Disorder: No Hx Seizures: No CVA: No Hx Back Pain: No Hx Psychiatric Problems: No - Gastrointestinal Hx Ulcer: No Hx Gastroesophageal Reflux Disease: Yes (on nexium) - Endocrine Hx Renal Disease: No Hx End Stage Renal Disease: No Hx Cirrhosis: No Hx Liver Disease: No Hx Insulin Dependent Diabetes: No Hx Non-Insulin Dependent Diabetes: No Hx Thyroid Disease: No Hx Hypothyroidism: No Hx Hyperthyroidism: No - Hematic Hx Anemia: No Hx Sickle Cell Disease: No - Other Systems Hx Alcohol Use: Yes (SOCIALLY) Hx Substance Use: No Hx Cancer: No Hx Obesity: Yes
--- NOTE | 2020-06-30 07:48 | Anesthesia Day of Surgery ---
Anesthesia Day of Surgery - Day of Surgery Patient Examined: Yes Patient H&P Reviewed: Yes Patient is NPO: Yes
[2020-06-30] MEDS ORDERED: propofoL 200 MG/20 ML VIAL IV ONE (09:19)
[2020-06-30] MEDS ORDERED: LIDOCAINE MPF (2%) 20 MG/1 ML VIAL 5 ML ONE (09:19)
[2020-06-30] MEDS ORDERED: KETAMINE/STERILE WATER 50 MG/ML SYRINGE ONE (09:29)
[2020-06-30] MEDS ORDERED: MIDAZOLAM 2 MG/2 ML INJ ONE (09:30)
--- NOTE | 2020-06-30 09:45 | Operative Report ---
Operative Report Operative Report: DATE 06/30/2020 SURGERY: Upper endoscopy. SURGEON: Shalom Marcos M.D. PROCEDURE: EGD with biopsy PRE OP DX: morbid obesity, GERD POST OP DX: morbid obesity, GERD, gastritis, hiatal hernia TYPE OF ANESTHESIA: MAC. ESTIMATED BLOOD LOSS: None. COMPLICATIONS: None. SPECIMENS REMOVED: antral biopsy FINDINGS: 1. Small hiatal hernia, gastritis 2. Otherwise, normal esophagus, stomach and first portion of duodenum. 3. retained food in antrum INDICATIONS:INDICATION FOR PROCEDURE: Patient is a 35-year-old female with a long history of morbid obesity. She is planned to have a weight loss procedure and is here for preoperative planning EGD. PROCEDURE DETAILS: After consent was reviewed, patient was taken back to the operating room where patient was placed in the left lateral decubitus position and a bite block was placed in the mouth. After a time-out was called, MAC anesthesia was initiated. I then passed the endoscope into her oropharynx, into her esophagus, visualized the entire esophagus, which was all within normal limits. There was noted to be some retained food in the body of the stoomach that did not obscure the antrum or pylorus. I then visualized the stomach and the first portion of the duodenum and there were no abnormalities I could clearly visualize with the exception of gastritis. A cold forceps biopsy of the antrum was taken and will be sent to pathology to evaluate for H.pylori. I then retroflexed the scope in the stomach and visualized the hiatus and I could see a small hiatal hernia. I then desufflated the stomach and removed the endoscope. Patient tolerated procedure well and was transferred to recovery room in good and stable condition.
--- NOTE | 2020-06-30 09:48 | Discharge Summary ---
Providers - Providers Date of Admission: 06/30/2020 Date of discharge: 06/30/20 Attending physician: JERMAINE FARIAS MD Primary care physician: FRANCHESCA DENNISON Hospitalization Reason for admission: EGD Condition: Good Procedures: EGD Hospital course: Pt presented for a pre-op EGD as part of planning for up coming bariatric surgery. Procedure was uneventful and pt recovered well and was discharged to home. Disposition: DC-01 TO HOME OR SELFCARE Core Measure Documentation - Palliative Care Palliative Care/ Comfort Measures: Not Applicable - Core Measures Any of the following diagnoses?: none Exam - Physical Exam Narrative exam: unchanged from pre-op - Constitutional Vitals: Temp Pulse Resp BP Pulse Ox 98.6 F 113 H 23 144/88 96 06/30/20 07:15 06/30/20 07:15 06/30/20 07:15 06/30/20 07:15 06/30/20 07:15 Plan Activity: no restrictions Weight Bearing Status: Full Weight Bearing Diet: low carbohydrate Follow up with: FRANCHESCA DENNISON MD [Primary Care Provider] - 7 Days
[2020-06-30 10:49] VITALS: BP 124/79
== END 2020-06-30 10:50 | disposition home or self-care (01) ==
LOC: GIO 06:58
PROVIDERS: ATTEND Surgery
DX: K21.9 Gastro-esophageal reflux disease without esophagitis (principal); E66.01 Morbid (severe) obesity due to excess calories; K44.9 Diaphragmatic hernia without obstruction or gangrene; K29.70 Gastritis, unspecified, without bleeding; K31.89 Other diseases of stomach and duodenum; G47.30 Sleep apnea, unspecified; F32.9 Major depressive disorder, single episode, unspecified; F41.9 Anxiety disorder, unspecified; Z88.5 Allergy status to narcotic agent; Z88.0 Allergy status to penicillin; Z88.2 Allergy status to sulfonamides; Z88.8 Allergy status to other drugs, medicaments and biological substances; Z79.899 Other long term (current) drug therapy; Z90.710 Acquired absence of both cervix and uterus; Z98.891 History of uterine scar from previous surgery; Z98.890 Other specified postprocedural states; Z72.89 Other problems related to lifestyle; Z68.44 Body mass index [BMI] 60.0-69.9, adult
CPT/HCPCS: 43239; 88305; J2250; J2704; J3490; J7030

== ENCOUNTER 2020-11-09 12:23 | Outpatient (CLI) | payer MEDICARE ==
[2020-11-09 13:17] LABS: Basophils # (Auto) 0.1 K/mm3 (0.0-0.1); Basophils % (Auto) 0.8 % (0.0-1.8); Eosinophils # (Auto) 0.1 K/mm3 (0.0-0.4); Eosinophils % (Auto) 1.9 % (0.0-4.3); Hematocrit 40.1 % (30.3-42.9); Hemoglobin 13.3 gm/dl (10.1-14.3); Lymphocytes # (Auto) 3.1 K/mm3 (1.2-5.4); Mean Corpuscular HGB Conc 33 % (30-34); Mean Corpuscular Volume 90 fl (79-97); Monocytes # (Auto) 0.6 K/mm3 (0.0-0.8); Monocytes % (Auto) 8.1 % (0.0-7.3); Platelet Count 384 K/mm3 (140-440); Red Blood Count 4.46 M/mm3 (3.65-5.03); Red Cell Distribution Width 15.7 % (13.2-15.2)
[2020-11-09 13:41] LABS: Alanine Aminotransferase 23 units/L (7-56); Albumin 3.8 g/dL (3.9-5); Blood Urea Nitrogen 16 mg/dL (7-17); Calcium 9.2 mg/dL (8.4-10.2); Chol/HDL Ratio 2.66 %; HDL Cholesterol 60 mg/dL (40-59); Hemolysis Index 0; Iron 56 ug/dL (37-170); LDL Cholesterol,Direct 86 mg/dL (50-130); Total Iron Binding Capacity 298 mcg/dL (250-450)
[2020-11-09 14:11] LABS: BUN/Creatinine Ratio 23
== END 2020-11-09 12:24 | disposition home or self-care (01) ==
LOC: LAB 12:23
PROVIDERS: ATTEND Surgery
DX: K30 Functional dyspepsia (principal); E11.9 Type 2 diabetes mellitus without complications; E66.01 Morbid (severe) obesity due to excess calories; Z98.84 Bariatric surgery status
CPT/HCPCS: 36415; 80053; 80061; 82306; 82607; 82728; 83036; 83550; 84425; 84443; 85025